=== PATIENT | female | born 1980 | race Hispanic/Latino ===

== ENCOUNTER 2018-04-22 09:09 | Emergency (ER) | payer OTHER ==
--- NOTE | 2018-04-22 09:35 | EDPHYS ---
Physician Documentation [facility] Age[facility] 37 [facility] Sex: Female : 1980 Arrival Date: 04/22/2018 Time: 09:11 Bed 14 Private MD: RJ Physician Madhu Beauchamp HPI: 04/22 09:26 This 37 yrs old Female presents to ER via Ambulatory with complaints of Eye amado Swelling. 09:26 to the right eye. Onset: The symptoms/episode began/occurred 2 day(s) ago. Duration: amado the symptoms are continuous. Aggravated by blinking, closing eye, pressure, Alleviated by nothing. Associated signs and symptoms: Pertinent positives:. Patient does not utilize any form of vision correction. Severity of symptoms: At their worst the symptoms were mild in the emergency department the symptoms are unchanged. The patient has not experienced similar symptoms in the past. Historical: - Allergies: 09:21 PENICILLINS; em - Home Meds: 09:21 None [Active]; em - PMHx: 09:21 None; em - PSHx: 09:21 None; em - Immunization history:: Adult Immunizations up to date. - Social history:: Smoking status: Patient/guardian denies using tobacco. - Ebola Screening: : Patient negative for fever greater than or equal to 101.5 degrees Fahrenheit, and additional compatible Ebola Virus Disease symptoms Patient denies exposure to infectious person Patient denies travel to an Ebola-affected area in the 21 days before illness onset No symptoms or risks identified at this time. - Family history:: not pertinent. ROS: 09:26 Constitutional: Negative for fever, chills, and weight loss, Eyes: Negative for injury, amado pain, redness, and discharge, ENT: Negative for injury, pain, and discharge, Neck: Negative for injury, pain, and swelling, Cardiovascular: Negative for chest pain, palpitations, and edema, Respiratory: Negative for shortness of breath, cough, wheezing, and pleuritic chest pain, Abdomen/GI: Negative for abdominal pain, nausea, vomiting, diarrhea, and constipation, Back: Negative for injury and pain, : Negative for injury, bleeding, discharge, and swelling, MS/Extremity: Negative for injury and deformity, Neuro: Negative for headache, weakness, numbness, tingling, and seizure, Psych: Negative for depression, anxiety, suicide ideation, homicidal ideation, and hallucinations, Allergy/Immunology: Negative for hives, rash, and allergies, Endocrine: Negative for neck swelling, polydipsia, polyuria, polyphagia, and marked weight changes, Hematologic/Lymphatic: Negative for swollen nodes, abnormal bleeding, and unusual bruising. 09:26 Skin: Positive for erythema, swelling, of the right eye. Exam: 09:26 Constitutional: This is a well developed, well nourished patient who is awake, alert, amado and in no acute distress. Eyes: Pupils equal round and reactive to light, extra-ocular motions intact. Lids and lashes normal. Conjunctiva and sclera are non-icteric and not injected. Cornea within normal limits. Periorbital areas with no swelling, redness, or edema. ENT: Nares patent. No nasal discharge, no septal abnormalities noted. Tympanic membranes are normal and external auditory canals are clear. Oropharynx with no redness, swelling, or masses, exudates, or evidence of obstruction, uvula midline. Mucous membranes moist. Neck: Trachea midline, no thyromegaly or masses palpated, and no cervical lymphadenopathy. Supple, full range of motion without nuchal rigidity, or vertebral point tenderness. No Meningismus. Chest/axilla: Normal chest wall appearance and motion. Nontender with no deformity. No lesions are appreciated. Cardiovascular: Regular rate and rhythm with a normal S1 and S2. No gallops, murmurs, or rubs. Normal PMI, no JVD. No pulse deficits. Respiratory: Lungs have equal breath sounds bilaterally, clear to auscultation and percussion. No rales, rhonchi or wheezes noted. No increased work of breathing, no retractions or nasal flaring. Abdomen/GI: Soft, non-tender, with normal bowel sounds. No distension or tympany. No guarding or rebound. No evidence of tenderness throughout. Back: No spinal tenderness. No costovertebral tenderness. Full range of motion. Skin: Warm, dry with normal turgor. Normal color with no rashes, no lesions, and no evidence of cellulitis. MS/ Extremity: Pulses equal, no cyanosis. Neurovascular intact. Full, normal range of motion. Neuro: Awake and alert, GCS 15, oriented to person, place, time, and situation. Cranial nerves II-XII grossly intact. Motor strength 5/5 in all extremities. Sensory grossly intact. Cerebellar exam normal. Normal gait. Psych: Awake, alert, with orientation to person, place and time. Behavior, mood, and affect are within normal limits. 09:26 Head/face: Noted is erythema, swelling, that is mild, of the right upper eyelid. Vital Signs: 09:21 BP 105 / 74; Pulse 78; Resp 18; Temp 97.8; Pulse Ox 100% on R/A; Weight 62 kg; Height 5 em ft. 6 in. (168 cm); Pain 0/10; 09:21 Body Mass Index 21.97 (62.00 kg, 168 cm) em MDM: 09:14 Patient medically screened. [facility] 09:31 Data reviewed: vital signs, nurses notes. [facility] Administered Medications: 09:40 Drug: Bactrim (160 mg-800 mg (DS) 1 tablet Route: PO; em 09:44 Follow up: Response: Medication administered at discharge. em Disposition: 04/22/18 09:34 Discharged to Home. Impression: Unspecified inflammation of eyelid. - Condition is Stable. - Discharge Instructions: Cellulitis, Adult, Cellulitis, Adult, [id number], Preseptal Cellulitis, Adult. - Prescriptions for Tobrex 0.3 % Ophthalmic ointment - apply 1 inch ribbon by OPHTHALMIC route 3 times per day; 3.5 gram. Bactrim DS 800- 160 mg Oral Tablet - take 1 tablet by ORAL route every 12 hours for 10 days; 20 tablet. - Medication Reconciliation Form, Thank You Letter, Antibiotic Education, Prescription Opioid Use form. - Follow up: Private Physician; When: 2 - 3 days; Reason: Recheck today's complaints, Continuance of care, Re-evaluation by your physician. Follow up: Rick Don MD; When: 2 - 3 days; Reason: Recheck today's complaints, Re-evaluation by your physician. - Problem is new. - Symptoms have improved. Signatures: Madhu Beauchamp MD MD cha Munoz, Edgar, PATIENT PORTAL REPRESENTATIVE PATIENT PORTAL REPRESENTATIVE em Corrections: (The following items were deleted from the chart) 09:45 09:34 04/22/2018 09:34 Discharged to Home. Impression: Unspecified inflammation of em eyelid. Condition is Stable. Forms are Medication Reconciliation Form, Thank You Letter, Antibiotic Education, Prescription Opioid Use. Follow up: Private Physician; When: 2 - 3 days; Reason: Recheck today's complaints, Continuance of care, Re-evaluation by your physician. Follow up: Rick Don; When: 2 - 3 days; Reason: Recheck today's complaints, Re-evaluation by your physician. Problem is new. Symptoms have improved. amado
--- NOTE | 2018-04-22 09:35 | ER ---
Nurse's Notes [facility] Name: Daniella Wakefield Age: 37 yrs Sex: Female : 1980 Arrival Date: 04/22/2018 Time: 09:11 Bed 14 Private MD: Diagnosis: Unspecified inflammation of eyelid Presentation: 04/22 09:17 Presenting complaint: Patient states: right eye swelling that started yesterday, em reports dizziness and nausea, denies fever, blurred vision, minor swelling noted. Transition of care: patient was not received from another setting of care. Onset of symptoms was April 21, 2018. Risk Assessment: Do you want to hurt yourself or someone else? Patient reports no desire to harm self or others. Initial Sepsis Screen: Does the patient meet any 2 criteria? No. Patient's initial sepsis screen is negative. Does the patient have a suspected source of infection? No. Patient's initial sepsis screen is negative. Care prior to arrival: None. 09:17 Method Of Arrival: Ambulatory em 09:17 Acuity: FLACO 5 ss Triage Assessment: 09:21 General: Appears in no apparent distress. comfortable, Behavior is calm, cooperative. em Pain: Denies pain. Historical: - Allergies: 09: PENICILLINS; em - Home Meds: 09: None [Active]; em - PMHx: 09: None; em - PSHx: 09:21 None; em - Immunization history:: Adult Immunizations up to date. - Social history:: Smoking status: Patient/guardian denies using tobacco. - Ebola Screening: : Patient negative for fever greater than or equal to 101.5 degrees Fahrenheit, and additional compatible Ebola Virus Disease symptoms Patient denies exposure to infectious person Patient denies travel to an Ebola-affected area in the 21 days before illness onset No symptoms or risks identified at this time. - Family history:: not pertinent. Screenin:23 Abuse screen: Denies threats or abuse. Nutritional screening: No deficits noted. em Tuberculosis screening: No symptoms or risk factors identified. Fall Risk None identified. Assessment: 09:21 General: Appears in no apparent distress. comfortable, Behavior is calm, cooperative, em Denies fever. Pain: Denies pain. Neuro: Level of Consciousness is awake, alert, obeys commands, Oriented to person, place, time, situation, Pupils are PERRLA. Cardiovascular: Capillary refill < 3 seconds Patient's skin is warm and dry. Respiratory: Airway is patent Respiratory effort is even, unlabored, Respiratory pattern is regular, symmetrical. GI: Abdomen is flat, Reports nausea, Patient currently denies diarrhea, vomiting. : No signs and/or symptoms were reported regarding the genitourinary system. EENT: Lid(s) mild swelling noted in right eye lid. Derm: Skin is intact, is healthy with good turgor, Skin is pink, warm \T\ dry. Musculoskeletal: Range of motion: intact in all extremities. Vital Signs: 09:21 BP 105 / 74; Pulse 78; Resp 18; Temp 97.8; Pulse Ox 100% on R/A; Weight 62 kg; Height 5 em ft. 6 in. (168 cm); Pain 0/10; 09:21 Body Mass Index 21.97 (62.00 kg, 168 cm) em ED Course: 09:11 Patient arrived in ED. sb2 09:14 Madhu Beauchamp MD is Attending Physician. [facility] 09:17 Andrea May LVN is Primary Nurse. em 09:21 Arm band placed on. em 09:23 Patient has correct armband on for positive identification. Bed in low position. Call em light in reach. 09:23 No provider procedures requiring assistance completed. Patient did not have IV access em during this emergency room visit. 09:27 Triage completed. 09:32 Rick Don MD is Referral Physician. [facility] Administered Medications: 09:40 Drug: Bactrim (160 mg-800 mg (DS) 1 tablet Route: PO; em 09:44 Follow up: Response: Medication administered at discharge. em Outcome: 09:34 Discharge ordered by . [facility] 09:45 Discharged to home ambulatory. em 09:45 Condition: good 09:45 Discharge instructions given to patient, Instructed on discharge instructions, follow up and referral plans. medication usage, Demonstrated understanding of instructions, follow-up care, medications, Prescriptions given X 2. 09:45 Patient left the ED. em Signatures: Madhu Beauchamp MD MD cha Munoz, Edgar, LVN LVN em Gloria Chavez, WANG RN Sharron Hernandez sb2
[2018-04-22] MEDS ORDERED: SMZ./TMP. 800/160 MG TABLET ONE (09:37)
== END 2018-04-22 09:45 | disposition home or self-care (01) ==
LOC: ER 09:09
DX: H01.9 Unspecified inflammation of eyelid (principal); Z88.0 Allergy status to penicillin
CPT/HCPCS: 99283

== ENCOUNTER 2018-07-24 21:53 | Emergency (ER) | payer OTHER ==
--- NOTE | 2018-07-24 23:44 | ER ---
Nurse's Notes [facility] Name: Daniella Wakefield Age: 37 yrs Sex: Female : 1980 Arrival Date: 07/24/2018 Time: 21:54 Bed 19 Private MD: Diagnosis: Malaise and fatigue;Nausea Presentation: 07/24 22:24 Presenting complaint: Patient states: for the last couple of weeks she has been running bb a low grade temp of 99 has felt fatigued and occasionally is nauseous but not much. Transition of care: patient was not received from another setting of care. Onset of symptoms was July 09, 2018. Risk Assessment: Do you want to hurt yourself or someone else? Patient reports no desire to harm self or others. Initial Sepsis Screen: Does the patient meet any 2 criteria? No. Patient's initial sepsis screen is negative. Does the patient have a suspected source of infection? No. Patient's initial sepsis screen is negative. Care prior to arrival: None. 22:24 Method Of Arrival: Ambulatory bb 22:24 Acuity: FLACO 4 bb SAFETY COMPANION: 22:26 LMP 07/09/2018 bb Historical: - Allergies: 22:26 PENICILLINS; bb - Home Meds: 22:26 None [Active]; bb - PMHx: 22:26 None; bb - PSHx: 22:26 None; bb - Immunization history:: Adult Immunizations unknown. - Social history:: Smoking status: Patient/guardian denies using tobacco. - Ebola Screening: : No symptoms or risks identified at this time. Screenin:01 Abuse screen: Denies threats or abuse. Denies injuries from another. Nutritional ed1 screening: No deficits noted. Tuberculosis screening: No symptoms or risk factors identified. Fall Risk None identified. Assessment: 23:01 General: Appears in no apparent distress. Behavior is calm, cooperative, Reports ed1 feeling ill for > 3 days. Pain: Denies pain. Neuro: Level of Consciousness is awake, alert, obeys commands, Oriented to person, place, time, situation. Cardiovascular: Denies chest pain, Heart tones S1 S2 present. Respiratory: Airway is patent Respiratory effort is even, unlabored, Respiratory pattern is regular, symmetrical, Breath sounds are clear bilaterally. GI: Reports nausea, Patient currently denies diarrhea, vomiting. : No signs and/or symptoms were reported regarding the genitourinary system. EENT: No signs and/or symptoms were reported regarding the EENT system. Derm: Skin is intact, is healthy with good turgor, Skin is pink, warm \T\ dry. Musculoskeletal: Circulation, motion, and sensation intact. Range of motion: intact in all extremities. 07/25 00:05 Reassessment: Patient appears in no apparent distress at this time. No changes from ed1 previously documented assessment. Patient and/or family updated on plan of care and expected duration. Pain level reassessed. Patient is alert, oriented x 3, equal unlabored respirations, skin warm/dry/pink. Patient denies pain at this time. Vital Signs: 07/24 22:26 BP 122 / 78; Pulse 65; Resp 16 S; Temp 98.2(O); Pulse Ox 97% on R/A; Weight 62 kg (R); bb Height 5 ft. 6 in. (168 cm) (R); Pain 0/10; 07/25 00:05 BP 119 / 71; Pulse 63; Resp 17; Temp 98.6(O); Pulse Ox 99% on R/A; Pain 0/10; ed1 07/24 22:26 Body Mass Index 21.97 (62.00 kg, 168 cm) ED Course: 07/24 21:54 Patient arrived in ED. am2 22:05 Tanisha Farfan FNP-C [facility]. snw 22:05 Henri Andrews MD is Attending Physician. snw 22:26 Triage completed. bb 22:26 Arm band placed on Patient placed in waiting room, Patient notified of wait time. bb 22:48 Davida Cottrell, RN is Primary Nurse. ed1 23:01 Patient has correct armband on for positive identification. Bed in low position. Call ed1 light in reach. 23:02 Awaiting ED provider evaluation. ed1 23:29 Flu Sent. ed1 23:29 Strep Sent. ed1 23:29 Urine collected: clean catch specimen, clear, Flu and/or RSV swab sent to lab. Strep ed1 swab sent to lab. 07/25 00:05 No provider procedures requiring assistance completed. Patient did not have IV access ed1 during this emergency room visit. Administered Medications: No medications were administered Outcome: 07/24 23:44 Discharge ordered by MD. harman 07/25 00:05 Discharged to home ambulatory. ed1 Condition: good Discharge instructions given to patient, Instructed on discharge instructions, follow up and referral plans. medication usage, Demonstrated understanding of instructions, follow-up care, medications, Prescriptions given X 1. 00:06 Patient left the ED. ed1 Signatures: Tanisha Farfan, COLOR CONTROL OPERATOR-C COLOR CONTROL OPERATOR-Csnw Jessy Mendez RN RN bb Davida Cottrell RN RN ed1 Sally Ramirez am2
--- NOTE | 2018-07-24 23:44 | EDPHYS ---
Physician Documentation [facility] Name: Daniella Garcia [facility] Age: 37 yrs Sex: Female : 1980 Arrival Date: 07/24/2018 Time: 21:54 Bed 19 Private MD: ED Physician Henri Andrews HPI: 07/24 23:41 This 37 yrs old Female presents to ER via Ambulatory with complaints of Fever. snw 23:41 The patient reports fever, that was measured at 99 degrees Fahrenheit. Onset: The snw symptoms/episode began/occurred gradually, 2 week(s) ago, and became persistent. Modifying factors: there are no obvious modifying factors. Associated signs and symptoms: Pertinent negatives: abdominal pain, arthralgias, backache, chest pain, chills, cough, diarrhea, earache, headache, sinus congestion, shortness of breath, sore throat. Severity of symptoms: At their worst the symptoms were very mild. The patient has not experienced similar symptoms in the past. The patient has not recently seen a physician, and does not have an established primary care provider. . MUTUEL CLERK: 22:26 LMP 07/09/2018 bb Historical: - Allergies: 22:26 PENICILLINS; bb - Home Meds: 22:26 None [Active]; bb - PMHx: 22:26 None; bb - PSHx: 22:26 None; bb - Immunization history:: Adult Immunizations unknown. - Social history:: Smoking status: Patient/guardian denies using tobacco. - Ebola Screening: : No symptoms or risks identified at this time. ROS: 23:40 Eyes: Negative for injury, pain, redness, and discharge, ENT: Negative for injury, snw pain, and discharge, Neck: Negative for injury, pain, and swelling, Cardiovascular: Negative for chest pain, palpitations, and edema, Respiratory: Negative for shortness of breath, cough, wheezing, and pleuritic chest pain, Back: Negative for injury and pain, : Negative for injury, bleeding, discharge, and swelling, MS/Extremity: Negative for injury and deformity, Skin: Negative for injury, rash, and discoloration, Neuro: Negative for headache, weakness, numbness, tingling, and seizure. 23:40 Constitutional: Positive for malaise, nausea, fatigue. 23:40 Abdomen/GI: Positive for nausea, low grade fever x 2 weeks. Exam: 23:40 Constitutional: This is a well developed, well nourished patient who is awake, alert, snw and in no acute distress. Head/Face: Normocephalic, atraumatic. Eyes: Pupils equal round and reactive to light, extra-ocular motions intact. Lids and lashes normal. Conjunctiva and sclera are non-icteric and not injected. Cornea within normal limits. Periorbital areas with no swelling, redness, or edema. ENT: Nares patent. No nasal discharge, no septal abnormalities noted. Tympanic membranes are normal and external auditory canals are clear. Oropharynx with no redness, swelling, or masses, exudates, or evidence of obstruction, uvula midline. Mucous membranes moist. Neck: Trachea midline, no thyromegaly or masses palpated, and no cervical lymphadenopathy. Supple, full range of motion without nuchal rigidity, or vertebral point tenderness. No Meningismus. Chest/axilla: Normal chest wall appearance and motion. Nontender with no deformity. No lesions are appreciated. Cardiovascular: Regular rate and rhythm with a normal S1 and S2. No gallops, murmurs, or rubs. Normal PMI, no JVD. No pulse deficits. Respiratory: Lungs have equal breath sounds bilaterally, clear to auscultation and percussion. No rales, rhonchi or wheezes noted. No increased work of breathing, no retractions or nasal flaring. Abdomen/GI: Soft, non-tender, with normal bowel sounds. No distension or tympany. No guarding or rebound. No evidence of tenderness throughout. Back: No spinal tenderness. No costovertebral tenderness. Full range of motion. Skin: Warm, dry with normal turgor. Normal color with no rashes, no lesions, and no evidence of cellulitis. MS/ Extremity: Pulses equal, no cyanosis. Neurovascular intact. Full, normal range of motion. Neuro: Awake and alert, GCS 15, oriented to person, place, time, and situation. Cranial nerves II-XII grossly intact. Motor strength 5/5 in all extremities. Sensory grossly intact. Cerebellar exam normal. Normal gait. Psych: Awake, alert, with orientation to person, place and time. Behavior, mood, and affect are within normal limits. Vital Signs: 22:26 BP 122 / 78; Pulse 65; Resp 16 S; Temp 98.2(O); Pulse Ox 97% on R/A; Weight 62 kg (R); bb Height 5 ft. 6 in. (168 cm) (R); Pain 0/10; 07/25 00:05 BP 119 / 71; Pulse 63; Resp 17; Temp 98.6(O); Pulse Ox 99% on R/A; Pain 0/10; ed1 07/24 22:26 Body Mass Index 21.97 (62.00 kg, 168 cm) bb MDM: 07/24 22:51 Patient medically screened. snw 23:45 Data reviewed: vital signs, nurses notes. Data interpreted: Pulse oximetry: on room air snw is 97 %. Interpretation: normal. Counseling: I had a detailed discussion with the patient and/or guardian regarding: the historical points, exam findings, and any diagnostic results supporting the discharge/admit diagnosis, lab results, the need for outpatient follow up, to return to the emergency department if symptoms worsen or persist or if there are any questions or concerns that arise at home. Special discussion: Based on the history and exam findings, there is no indication for further emergent testing or inpatient evaluation. I discussed with the patient/guardian the need to see the primary care provider for further evaluation of the symptoms. Medical screen evaluation completed. EMTALA emergency medical condition absent. 07/24 23:15 Order name: Flu ed1 07/24 23:15 Order name: Strep ed1 07/24 23:15 Order name: Urine Microscopic Only ed1 07/24 23:16 Order name: Influenza Screen (A EDMS 07/24 23:29 Order name: Urine Dipstick--Ancillary (enter results) ed1 07/24 23:29 Order name: Urine --Ancillary (enter results) ed1 07/24 23:15 Order name: Urine Dipstick-Ancillary (obtain specimen); Complete Time: 23:29 ed1 07/24 23:15 Order name: Urine Test (obtain specimen); Complete Time: 23:29 ed1 Administered Medications: No medications were administered Disposition: 07/25 02:59 Co-signature as Attending Physician, Henri Andrews MD. Disposition: 07/24/18 23:44 Discharged to Home. Impression: Malaise and fatigue, Nausea. - Condition is Stable. - Discharge Instructions: Nausea, Adult, Fatigue. - Prescriptions for Zofran 4 mg Oral Tablet - take 1 tablet by ORAL route every 12 hours As needed; 6 tablet. - Medication Reconciliation Form, Thank You Letter, Antibiotic Education, Prescription Opioid Use form. - Follow up: Private Physician; When: 1 week; Reason: Recheck today's complaints, Continuance of care, Re-evaluation by your physician. Follow up: Emergency Department; When: As needed; Reason: Worsening of condition. Signatures: Dispatcher [employer] EDMS Tanisha Farfan, SHIPPING TRACK SUPERVISOR-C SHIPPING TRACK SUPERVISOR-Csnw Jessy Mendez, RN RN bb Davida Cottrell RN RN ed1 Henri Andrews MD MD gs Corrections: (The following items were deleted from the chart) 00:06 07/24 23:44 07/24/2018 23:44 Discharged to Home. Impression: Malaise and fatigue; ed1 Nausea. Condition is Stable. Forms are Medication Reconciliation Form, Thank You Letter, Antibiotic Education, Prescription Opioid Use. Follow up: Private Physician; When: 1 week; Reason: Recheck today's complaints, Continuance of care, Re-evaluation by your physician. Follow up: Emergency Department; When: As needed; Reason: Worsening of condition. snw
[2018-07-25 01:27] LABS: Urine Bacteria 20-50 /HPF (<20); Urine Culture Reflex Order REFLEXED; Urine RBC NONE SEEN /HPF (NONE SEEN)
[2018-07-25 01:27] LABS: Urine Blood NEGATIVE (NEG); Urine Glucose NEGATIVE (NEG); Urine Protein NEGATIVE (NEG)
== END 2018-07-25 00:06 | disposition home or self-care (01) ==
LOC: ER 21:53
DX: R53.81 Other malaise (principal); R53.83 Other fatigue; Z88.0 Allergy status to penicillin
CPT/HCPCS: 81003; 81015; 81025; 87070; 87081; 87086; 87088; 87804; 99283

== ENCOUNTER 2019-04-25 13:10 | Emergency (ER) | payer OTHER ==
[2019-04-25 14:25] LABS: Absolute Lymphocytes (CBC) 1.4 K/uL (0.7-4.9); Basophils % 0.4 % (0-1.3); MPV 8.5 fL (7.6-11.3)
[2019-04-25 15:46] LABS: BUN Blood Urea Nitrogen 13 mg/dL (7-18); Bicarbonate 27 mmol/L (21-32); Glucose Level 99 mg/dL (74-106); HCG, Quantitative 117 mIU/mL (1-3); Potassium 3.6 mmol/L (3.5-5.1); Sodium Level 139 mmol/L (136-145)
--- NOTE | 2019-04-25 16:18 | RAD REPORT ---
EXAM DESCRIPTION: US - Transvaginal Study Probe - 04/25/2019 3:05 pm CLINICAL HISTORY: Vaginal bleeding, COMPARISON: None. TECHNIQUE: Endovaginal sonography was performed. FINDINGS: No endovaginal gestational sac or sac remnant. No hemorrhagic material or other intrauteri ne products of conception. No myometrial mass. Small amount of fluid is present in the cul de sac. No cul de sac or adnexal blood identified. Right adnexa is obscured by bowel. Right ovary is not seen. A 14 millimeter oval cystic structure is present adjacent to the left ovary. There is a hypervascular ring seen on Doppler evaluation. No gestational sac or pole seen. The adjacent ovarian stroma shows no suspicious finding. No fallopian tube dilatation. IMPRESSION: A 14 millimeter cystic mass with hypervascular ring is present within or adjacent to the left ovary. No gestational sac or pole seen within this cystic mass. No intrauterine gestational sac or sac remnant. No hemorrhage or other intrauterine abnormality seen. The left adnexal finding is certainly possible for ectopic . Correlation is needed with beta HCG values.
--- NOTE | 2019-04-25 16:28 | EDPHYS ---
Physician Documentation [facility] Name: Daniella Wakefield Age: 38 yrs Sex: Female : 1980 Arrival Date: 04/25/2019 Time: 13:11 Bed 30 Private MD: ED Physician Guido Sims HPI: 04/25 14:20 This 38 yrs old Female presents to ER via Ambulatory with complaints of kb Vaginal Bleeding. 14:20 The patient presents to the emergency department with vaginal bleeding, light bleeding kb during intercourse over the weekend. course: care: none, Leakage of Fluid: none appreciated, Ultrasound: the patient has not had an ultrasound, Risk/complications: no obvious risks or complications are appreciated. Previous pregnancies: the patient has never been . Associated signs and symptoms: The patient has no apparent associated signs or symptoms. The patient has not experienced similar symptoms in the past. The patient has not recently seen a physician. Pt reports she has some bleeding during intercourse over the weekend, but assumed it was her period. States the bleeding only lasted a short time that day. She took a test today and it was positive. Came in to make sure everything was ok. RN PERIOPERATIVE: 13:16 LMP 03/24/2019 tw2 14:20 1, 0, Living 0, LMP 03/24/2019 kb Historical: - Allergies: 13:17 PENICILLINS; tw2 - Home Meds: 13:17 None [Active]; tw2 - PMHx: 13:17 None; tw2 - PSHx: 13:17 None; tw2 - Immunization history:: Adult Immunizations. - Social history:: Smoking status: . - Ebola Screening: : Patient negative for fever greater than or equal to 101.5 degrees Fahrenheit, and additional compatible Ebola Virus Disease symptoms. ROS: 14:19 Constitutional: Negative for fever, chills, and weight loss, ENT: Negative for injury, kb pain, and discharge, Neck: Negative for injury, pain, and swelling, Cardiovascular: Negative for chest pain, palpitations, and edema, Respiratory: Negative for shortness of breath, cough, wheezing, and pleuritic chest pain, Abdomen/GI: Negative for abdominal pain, nausea, vomiting, diarrhea, and constipation, Back: Negative for injury and pain, : Negative for injury, bleeding, discharge, and swelling, MS/Extremity: Negative for injury and deformity, Skin: Negative for injury, rash, and discoloration, Neuro: Negative for headache, weakness, numbness, tingling, and seizure. Exam: 14:19 Constitutional: This is a well developed, well nourished patient who is awake, alert, kb and in no acute distress. Head/Face: Normocephalic, atraumatic. Neck: Trachea midline, no thyromegaly or masses palpated, and no cervical lymphadenopathy. Supple, full range of motion without nuchal rigidity, or vertebral point tenderness. No Meningismus. Chest/axilla: Normal chest wall appearance and motion. Nontender with no deformity. No lesions are appreciated. Cardiovascular: Regular rate and rhythm with a normal S1 and S2. No gallops, murmurs, or rubs. Normal PMI, no JVD. No pulse deficits. Respiratory: Lungs have equal breath sounds bilaterally, clear to auscultation and percussion. No rales, rhonchi or wheezes noted. No increased work of breathing, no retractions or nasal flaring. Abdomen/GI: Soft, non-tender, with normal bowel sounds. No distension or tympany. No guarding or rebound. No evidence of tenderness throughout. Back: No spinal tenderness. No costovertebral tenderness. Full range of motion. Skin: Warm, dry with normal turgor. Normal color with no rashes, no lesions, and no evidence of cellulitis. MS/ Extremity: Pulses equal, no cyanosis. Neurovascular intact. Full, normal range of motion. Neuro: Awake and alert, GCS 15, oriented to person, place, time, and situation. Cranial nerves II-XII grossly intact. Motor strength 5/5 in all extremities. Sensory grossly intact. Cerebellar exam normal. Normal gait. Vital Signs: 13:16 BP 116 / 79; Pulse 95; Resp 18; Temp 98.3(TE); Pulse Ox 100% on R/A; Weight 58.97 kg tw2 (R); Height 5 ft. 6 in. (167.64 cm); Pain 0/10; 14:40 BP 109 / 73; Pulse 78; Resp 18; Pulse Ox 100% on R/A; mg2 16:13 Pulse 83; Resp 18; Pulse Ox 100% on R/A; mg2 18:12 BP 120 / 78; Pulse 85; Resp 18; Pulse Ox 100% on R/A; mg2 19:27 BP 118 / 78; Pulse 78; Resp 18; Temp 98; Pulse Ox 100% on R/A; mg2 13:16 Body Mass Index 20.98 (58.97 kg, 167.64 cm) tw2 MDM: 13:18 Patient medically screened. kb 14:20 Data reviewed: vital signs, nurses notes. Data interpreted: Pulse oximetry: on room air kb is 100 %. Interpretation: normal. 15:50 Counseling: I had a detailed discussion with the patient and/or guardian regarding: the kb historical points, exam findings, and any diagnostic results supporting the discharge/admit diagnosis, lab results, radiology results, the need for outpatient follow up, an OB/Gyne specialist, to return to the emergency department if symptoms worsen or persist or if there are any questions or concerns that arise at home. 15:55 ED course: Pt educated on findings. Pt will return for repeat quantitative and kb evaluation in 2 days. Pt has no pain and no tenderness upon exam. Pt educated on ectopic pregnancies and that that cannot be excluded at this time so follow up is important. Also educated to return for abd pain or any other concerns. . 04/25 13:48 Order name: Urine Dipstick--Ancillary (enter results) 04/25 13:48 Order name: Urine --Ancillary (enter results) 04/25 14:03 Order name: Quantitative Hcg 04/25 14:03 Order name: Abo/rh Typing 04/25 14:03 Order name: Basic Metabolic Panel 04/25 14:03 Order name: CBC with Diff 04/25 14:27 Order name: CBC with Automated Diff; Complete Time: 14:26 EDMS 04/25 14:46 Order name: ABO/RH typing; Complete Time: 14:45 EDMS 04/25 15:47 Order name: Basic Metabolic Panel; Complete Time: 15:48 EDMS 04/25 15:47 Order name: HCG, Quantitative; Complete Time: 15:48 EDMS 04/25 16:04 Order name: TS mg2 04/25 16:45 Order name: Urine --Ancillary; Complete Time: 16:45 EDMS 04/25 16:45 Order name: Urine Dipstick-Ancillary; Complete Time: 16:45 EDMS 04/25 18:27 Order name: Type and Screen EDMS 04/25 13:17 Order name: Urine Test (obtain specimen); Complete Time: 13:49 kb 04/25 14:03 Order name: IV Saline Lock; Complete Time: 14:21 kb 04/25 14:03 Order name: Labs collected and sent; Complete Time: 14:21 kb 04/25 14:03 Order name: NPO; Complete Time: 14:21 kb 04/25 14:03 Order name: Urine Dipstick-Ancillary (obtain specimen); Complete Time: 14:21 kb 04/25 14:27 Order name: US Transvaginal Ob kb 04/25 16:27 Order name: US; Complete Time: 16:30 EDMS 04/25 16:27 Order name: Labs - recollect needed; Complete Time: 16:36 bd 04/25 18:46 Order name: Rh Typing EDMS 04/25 18:46 Order name: Antibody Identification EDMS Administered Medications: 19:26 Drug: RhoGAM (Human) 300 mcg Route: IM; Site: right gluteus; mg2 19:27 Follow up: Response: No adverse reaction; Medication administered at discharge. mg2 Disposition: 04/25/19 16:27 Discharged to Home. Impression: Less than 8 weeks gestation of , Threatened . - Condition is Stable. - Discharge Instructions: First Trimester of , Oaor-vw-Hrky, Threatened Miscarriage, Xebr-kv-Vnrd, Ectopic , Crty-dt-Eqxv. - Medication Reconciliation Form, Thank You Letter, Antibiotic Education, Prescription Opioid Use form. - Follow up: Emergency Department; When: As needed; Reason: Worsening of condition. Follow up: Private Physician; When: 2 - 3 days; Reason: Recheck today's complaints, Continuance of care, Re-evaluation by your physician. - Notes: Start taking a daily vitamin Return in 48 hours for repeat quantitative test. Return immediately for abd pain or any other concerns Addendum: 04/29/2019 07:11 Co-signature as Attending Physician, Guido Sims MD. m a2 Signatures: Dispatcher [employer] EDME Yamile Love, GUILLERMOC SILVICULTURE FORESTER-Hansa Lantigua Tara, RN RN tw2 Guido Sims MD MD ma2 Gardose, Juventino, RN RN mg2 Corrections: (The following items were deleted from the chart) 04/25 16:29 15:55 ED course: Pt educated on findings. Pt will return for repeat quantitative and kb evaluation in 2 days. Pt has no pain and no tenderness upon exam. . kb 19:28 16:27 04/25/2019 16:27 Discharged to Home. Impression: Less than 8 weeks gestation of mg2 ; Threatened . Condition is Stable. Forms are Medication Reconciliation Form, Thank You Letter, Antibiotic Education, Prescription Opioid Use. Follow up: Emergency Department; When: As needed; Reason: Worsening of condition. Follow up: Private Physician; When: 2 - 3 days; Reason: Recheck today's complaints, Continuance of care, Re-evaluation by your physician. kb
--- NOTE | 2019-04-25 16:28 | ER ---
Nurse's Notes [facility] Name: Daniella Wakefield Age: 38 yrs Sex: Female : 1980 Arrival Date: 04/25/2019 Time: 13:11 Bed 30 Private MD: Diagnosis: Less than 8 weeks gestation of ;Threatened Presentation: 04/25 13:14 Presenting complaint: Patient states: this weekend i had brief bleeding but it wasn't tw2 my period, i took a test and it was positive and i am not still bleeding but i was wondering if everything is ok with the baby if i am , little nauseous yesterday but it is gone now. Transition of care: patient was not received from another setting of care. Onset of symptoms was April 25, 2019. Risk Assessment: Do you want to hurt yourself or someone else? Patient reports no desire to harm self or others. Initial Sepsis Screen: Does the patient meet any 2 criteria? HR > 90 bpm. No. Patient's initial sepsis screen is negative. Does the patient have a suspected source of infection? No. Patient's initial sepsis screen is negative. Care prior to arrival: None. 13:14 Method Of Arrival: Ambulatory tw2 13:14 Acuity: FLACO 3 tw2 Triage Assessment: 13:16 General: Appears in no apparent distress. slender, well groomed, Behavior is calm, tw2 cooperative, appropriate for age. Pain: Denies pain. : Reports vaginal bleeding that is that has stopped. INFANTRY ASSAULTMAN: 13:16 LMP 03/24/2019 tw2 14:20 1, 0, Living 0, LMP 03/24/2019 kb Historical: - Allergies: 13:17 PENICILLINS; tw2 - Home Meds: 13:17 None [Active]; tw2 - PMHx: 13:17 None; tw2 - PSHx: 13:17 None; tw2 - Immunization history:: Adult Immunizations. - Social history:: Smoking status: . - Ebola Screening: : Patient negative for fever greater than or equal to 101.5 degrees Fahrenheit, and additional compatible Ebola Virus Disease symptoms. Screenin:51 Abuse screen: Denies threats or abuse. Denies injuries from another. Nutritional mg2 screening: No deficits noted. Tuberculosis screening: No symptoms or risk factors identified. Fall Risk None identified. Assessment: 13:50 General: Appears in no apparent distress. comfortable, Behavior is calm, cooperative. mg2 Pain: Denies pain. Neuro: Level of Consciousness is awake, alert, obeys commands, Oriented to person, place, time, situation. Cardiovascular: Capillary refill < 3 seconds Patient's skin is warm and dry. Respiratory: Airway is patent Respiratory effort is even, unlabored, Respiratory pattern is regular, symmetrical. GI: No signs and/or symptoms were reported involving the gastrointestinal system. : Urine is clear, Reports vaginal bleeding that is spotty, but not active now. EENT: No signs and/or symptoms were reported regarding the EENT system. Derm: Skin is intact, is healthy with good turgor, Skin is pink, warm \T\ dry. normal. Musculoskeletal: Circulation, motion, and sensation intact. Capillary refill < 3 seconds. 16:11 Reassessment: Patient appears in no apparent distress at this time. Patient and/or mg2 family updated on plan of care and expected duration. Pain level reassessed. Patient is alert, oriented x 3, equal unlabored respirations, skin warm/dry/pink. 16:21 Reassessment: patient signed the consent to receive rhogam. mg2 16:53 Reassessment: patient up for discharge after receiving the rhogam. still waiitng for TS.mg2 18:12 Reassessment: patient informed about the waiting time for rh test again. patient agreed.mg2 Vital Signs: 13:16 BP 116 / 79; Pulse 95; Resp 18; Temp 98.3(TE); Pulse Ox 100% on R/A; Weight 58.97 kg tw2 (R); Height 5 ft. 6 in. (167.64 cm); Pain 0/10; 14:40 BP 109 / 73; Pulse 78; Resp 18; Pulse Ox 100% on R/A; mg2 16:13 Pulse 83; Resp 18; Pulse Ox 100% on R/A; mg2 18:12 BP 120 / 78; Pulse 85; Resp 18; Pulse Ox 100% on R/A; mg2 19:27 BP 118 / 78; Pulse 78; Resp 18; Temp 98; Pulse Ox 100% on R/A; mg2 13:16 Body Mass Index 20.98 (58.97 kg, 167.64 cm) tw2 ED Course: 13:11 Patient arrived in ED. am2 13:16 Triage completed. tw2 13:16 Arm band placed on. tw2 13:17 [facility]C [facility] kb 13:17 Guido Sism MD is Attending Physician. kb 13:39 Juventino Ashley, RN is Primary Nurse. mg2 13:51 Patient has correct armband on for positive identification. mg2 13:51 No provider procedures requiring assistance completed. Patient did not have IV access mg2 during this emergency room visit. Administered Medications: 19:26 Drug: RhoGAM (Human) 300 mcg Route: IM; Site: right gluteus; mg2 19:27 Follow up: Response: No adverse reaction; Medication administered at discharge. mg2 Outcome: 16:27 Discharge ordered by . kb 19:28 Discharged to home ambulatory. mg2 19:28 Condition: stable 19:28 Discharge instructions given to patient, Instructed on discharge instructions, follow up and referral plans. Demonstrated understanding of instructions, follow-up care. 19:28 Patient left the ED. mg2 Signatures: Yamile Love FNP-C FNP-Diamond Delgado, RN RN tw2 Sally Ramirez am2 Juventino Ashley, RN RN mg2 Corrections: (The following items were deleted from the chart) 18:13 18:12 BP 110 / 68; Pulse 85bpm; Resp 18bpm; Pulse Ox 100% RA; mg2 mg2
[2019-04-25 16:44] LABS: Urine Blood NEGATIVE (NEG); Urine Glucose NEGATIVE (NEG); Urine Protein NEGATIVE (NEG); Urine Specific Gravity 1.025 (1.005-1.030)
[2019-04-25 19:35] VITALS: O2SAT 100
[2019-04-25 19:40] VITALS: BP 118/78; TEMP 98
== END 2019-04-25 19:28 | disposition home or self-care (01) ==
LOC: ER 13:10
DX: O20.0 Threatened abortion (principal); Z3A.01 Less than 8 weeks gestation of pregnancy; Z88.0 Allergy status to penicillin
CPT/HCPCS: 85025; 80048; 36415; 86900; 86850; 81025; 85461; 86870; 86901 ×2; 84702; 81003; 76830; 96372; 99283; J2790

== ENCOUNTER 2019-04-27 14:34 | Emergency (ER) | payer OTHER ==
--- NOTE | 2019-04-27 16:38 | ER ---
Nurse's Notes [facility] Name: Daniella Wakefield Age: 38 yrs Sex: Female : 1980 Arrival Date: 04/27/2019 Time: 14:35 Bed 26 Private MD: Diagnosis: state Presentation: 04/27 14:41 Presenting complaint: Patient states: Was told to return today to have HCG redrawn. ss Transition of care: patient was not received from another setting of care. Onset of symptoms was April 25, 2019. Risk Assessment: Do you want to hurt yourself or someone else? Patient reports no desire to harm self or others. Initial Sepsis Screen: Does the patient meet any 2 criteria? No. Patient's initial sepsis screen is negative. Does the patient have a suspected source of infection? No. Patient's initial sepsis screen is negative. Care prior to arrival: None. 14:41 Method Of Arrival: Ambulatory ss 14:41 Acuity: FLACO 4 ss Historical: - Allergies: 14:43 PENICILLINS; ss - PSHx: 14:43 None; ss - Immunization history:: Adult Immunizations up to date. - Social history:: Smoking status: Patient/guardian denies using tobacco. - Ebola Screening: : Patient denies exposure to infectious person Patient denies travel to an Ebola-affected area in the 21 days before illness onset. Screenin:00 Abuse screen: Denies threats or abuse. Nutritional screening: No deficits noted. tr5 Tuberculosis screening: No symptoms or risk factors identified. Fall Risk None identified. Assessment: 15:00 General: Appears in no apparent distress. Behavior is calm, cooperative, appropriate tr5 for age. Pain: Denies pain. Neuro: Level of Consciousness is awake, alert, obeys commands, Oriented to person, place, time, Tub Rider are equal bilaterally Moves all extremities. Cardiovascular: Heart tones present. Respiratory: Airway is patent Respiratory effort is even, unlabored, Respiratory pattern is regular, symmetrical, Breath sounds are clear bilaterally. GI: No signs and/or symptoms were reported involving the gastrointestinal system. : No signs and/or symptoms were reported regarding the genitourinary system. EENT: No signs and/or symptoms were reported regarding the EENT system. Derm: No signs and/or symptoms reported regarding the dermatologic system. Musculoskeletal: No signs and/or symptoms reported regarding the musculoskeletal system. Vital Signs: 14:43 BP 123 / 82; Pulse 68; Resp 16; Temp 98.2(TE); Pulse Ox 100% on R/A; Weight 58 kg; ss Height 5 ft. 6 in. (168 cm); Pain 0/10; 14:43 Body Mass Index 20.55 (58.00 kg, 168 cm) ED Course: 14:35 Patient arrived in ED. as 14:42 Tanisha Farfan FNP-C is [facility]. snw 14:42 Gagan Garcia MD is Attending Physician. snw 14:42 Triage completed. ss 14:43 Arm band placed on right wrist. ss 15:07 Initial lab(s) drawn, by me, sent to lab. Patient maintains SpO2 saturation greater jp3 than 95% on room air. 15:09 Toño Lucas, RN is Primary Nurse. tr5 15:10 HCG-Quantitative Sent. jp3 15:11 Bed in low position. Call light in reach. Warm blanket given. Verbal reassurance given. jp3 Pulse ox on. NIBP on. 16:44 No provider procedures requiring assistance completed. Patient did not have IV access tr5 during this emergency room visit. Administered Medications: No medications were administered Outcome: 16:37 Discharge ordered by . snw 16:44 Discharged to home ambulatory. tr5 16:44 Condition: stable 16:44 Discharge instructions given to patient, Instructed on discharge instructions, follow up and referral plans. medication usage, Demonstrated understanding of instructions, follow-up care, medications. 16:47 Patient left the ED. tr5 Signatures: Tanisha Farfan FNP-C FNP-Adina Chairez Shelby, RN RN Rg Richardson jp3 Toño Lucas, RN RN tr5
--- NOTE | 2019-04-27 16:38 | EDPHYS ---
Physician Documentation [facility] Name: Daniella Wakefield Age: 38 yrs Sex: Female : 1980 Arrival Date: 04/27/2019 Time: 14:35 Bed 26 Private MD: ED Physician Gagan Garcia HPI: 04/27 15:50 This 38 yrs old Female presents to ER via Ambulatory with complaints of Repeat snw HCG. 15:50 Onset: The symptoms/episode began/occurred acutely. Associated signs and symptoms: The snw patient has no apparent associated signs or symptoms, Pertinent negatives: abdominal pain, vomiting, wheezing, vaginal bleeding. The patient has not experienced similar symptoms in the past. The patient has been recently seen by a physician: The patient has been recently seen at the [facility] Emergency Department, this week, for similar complaints told to return to ED for repeat HCG. HCG previous visit 117, no bleeding or pelvic pain. G1. Historical: - Allergies: 14:43 PENICILLINS; ss - PSHx: 14:43 None; ss - Immunization history:: Adult Immunizations up to date. - Social history:: Smoking status: Patient/guardian denies using tobacco. - Ebola Screening: : Patient denies exposure to infectious person Patient denies travel to an Ebola-affected area in the 21 days before illness onset. ROS: 15:50 Constitutional: Negative for fever, chills, and weight loss, Eyes: Negative for injury, snw pain, redness, and discharge, ENT: Negative for injury, pain, and discharge, Neck: Negative for injury, pain, and swelling, Cardiovascular: Negative for chest pain, palpitations, and edema, Respiratory: Negative for shortness of breath, cough, wheezing, and pleuritic chest pain, Abdomen/GI: Negative for abdominal pain, nausea, vomiting, diarrhea, and constipation, Back: Negative for injury and pain, : Negative for injury, bleeding, discharge, and swelling, MS/Extremity: Negative for injury and deformity, Skin: Negative for injury, rash, and discoloration, Neuro: Negative for headache, weakness, numbness, tingling, and seizure, Psych: Negative for depression, anxiety, suicide ideation, homicidal ideation, and hallucinations. Exam: 15:50 Constitutional: This is a well developed, well nourished patient who is awake, alert, snw and in no acute distress. Head/Face: Normocephalic, atraumatic. Eyes: Pupils equal round and reactive to light, extra-ocular motions intact. Lids and lashes normal. Conjunctiva and sclera are non-icteric and not injected. Cornea within normal limits. Periorbital areas with no swelling, redness, or edema. ENT: Nares patent. No nasal discharge, no septal abnormalities noted. Tympanic membranes are normal and external auditory canals are clear. Oropharynx with no redness, swelling, or masses, exudates, or evidence of obstruction, uvula midline. Mucous membranes moist. Neck: Trachea midline, no thyromegaly or masses palpated, and no cervical lymphadenopathy. Supple, full range of motion without nuchal rigidity, or vertebral point tenderness. No Meningismus. Chest/axilla: Normal chest wall appearance and motion. Nontender with no deformity. No lesions are appreciated. Cardiovascular: Regular rate and rhythm with a normal S1 and S2. No gallops, murmurs, or rubs. Normal PMI, no JVD. No pulse deficits. Respiratory: Lungs have equal breath sounds bilaterally, clear to auscultation and percussion. No rales, rhonchi or wheezes noted. No increased work of breathing, no retractions or nasal flaring. Abdomen/GI: Soft, non-tender, with normal bowel sounds. No distension or tympany. No guarding or rebound. No evidence of tenderness throughout. Back: No spinal tenderness. No costovertebral tenderness. Full range of motion. Skin: Warm, dry with normal turgor. Normal color with no rashes, no lesions, and no evidence of cellulitis. MS/ Extremity: Pulses equal, no cyanosis. Neurovascular intact. Full, normal range of motion. Neuro: Awake and alert, GCS 15, oriented to person, place, time, and situation. Cranial nerves II-XII grossly intact. Motor strength 5/5 in all extremities. Sensory grossly intact. Cerebellar exam normal. Normal gait. Psych: Awake, alert, with orientation to person, place and time. Behavior, mood, and affect are within normal limits. Vital Signs: 14:43 BP 123 / 82; Pulse 68; Resp 16; Temp 98.2(TE); Pulse Ox 100% on R/A; Weight 58 kg; ss Height 5 ft. 6 in. (168 cm); Pain 0/10; 14:43 Body Mass Index 20.55 (58.00 kg, 168 cm) MDM: 15:07 Patient medically screened. snw 16:38 Data reviewed: vital signs, nurses notes. Data interpreted: Pulse oximetry: on room air snw is 100 %. Interpretation: normal. Counseling: I had a detailed discussion with the patient and/or guardian regarding: the historical points, exam findings, and any diagnostic results supporting the discharge/admit diagnosis, lab results, the need for outpatient follow up, to return to the emergency department if symptoms worsen or persist or if there are any questions or concerns that arise at home. Special discussion: Based on the history and exam findings, there is no indication for further emergent testing or inpatient evaluation. I discussed with the patient/guardian the need to see the OB Gyne specialist for further evaluation of the symptoms. I discussed with the patient/guardian the need to see the primary care provider for further evaluation of the symptoms. 04/27 15:09 Order name: HCG-Quantitative; Complete Time: 16:38 tr5 Administered Medications: No medications were administered Disposition: 17:59 Co-signature as Attending Physician, Gagan Garcia MD. rn Disposition: 04/27/19 16:37 Discharged to Home. Impression: state. - Condition is Stable. - Discharge Instructions: Vaginal Bleeding During , First Trimester, First Trimester of . - Prescriptions for Vitamin 27- 0.8 mg Oral Tablet - take 1 tablet by ORAL route once daily; 60 tablet. - Medication Reconciliation Form, Thank You Letter, Antibiotic Education, Prescription Opioid Use form. - Follow up: Emergency Department; When: As needed; Reason: Worsening of condition. Follow up: Private Physician; When: 2 - 3 days; Reason: Recheck today's complaints, Continuance of care, Re-evaluation by your physician. Signatures: Dispatcher [employer] EDCA Tanisha Farfan, TERMINATION CLERK-C TERMINATION CLERK-Csnw Gagan Garcia MD MD rn Smirch, Shelby, RN RN Toño Caban RN RN tr5 Corrections: (The following items were deleted from the chart) 16:47 16:37 04/27/2019 16:37 Discharged to Home. Impression: state. Condition is tr5 Stable. Forms are Medication Reconciliation Form, Thank You Letter, Antibiotic Education, Prescription Opioid Use. Follow up: Emergency Department; When: As needed; Reason: Worsening of condition. Follow up: Private Physician; When: 2 - 3 days; Reason: Recheck today's complaints, Continuance of care, Re-evaluation by your physician. kimani
[2019-04-27 17:37] VITALS: BP 123/82; TEMP 98.2; O2SAT 100
== END 2019-04-27 16:47 | disposition home or self-care (01) ==
LOC: ER 14:34
DX: O26.891 Other specified pregnancy related conditions, first trimester (principal); Z3A.00 Weeks of gestation of pregnancy not specified; Z88.0 Allergy status to penicillin
CPT/HCPCS: 36415; 84702; 99284